=== PATIENT | female | born 1970 | race Caucasian/White ===

== ENCOUNTER → 2017-01-02 | Outpatient (CLI) | payer BC ==
--- NOTE | 2017-01-09 08:13 | MAMMOGRAPHY REPORT ---
UNILATERAL LEFT DIGITAL DIAGNOSTIC MAMMOGRAM TOMOSYNTHESIS WITH CAD AND TARGETED LEFT ULTRASOUND: 01/02/2017 CLINICAL HISTORY: 46-year-old woman presents for follow-up in the left breast for a nodular asymmetr y in the slightly superior posterior breast on the MLO view. This was thought to correlate with a p ossible complicated cyst on ultrasound. TECHNIQUE: Left breast tomosynthesis in addition to standard 2D mammography was performed. Current s tudy was also evaluated with a Computer Aided Detection (CAD) system. COMPARISON: Comparison is made to exams dated: 07/04/2016 stereotactic biopsy, 07/04/2016 mammogram, 06/13/2016 ultrasound, 06/13/2016 mammogram, 04/19/2016 mammogram, and 04/13/2015 ultrasound - [facility]. BREAST COMPOSITION: There are scattered areas of fibroglandular density in the left breast. FINDINGS: The 7 mm nodular asymmetry in the superior posterior left breast on the MLO view is less conspicuous on the current exam. There is no evidence of a suspicious mass, focal area of drupal architect ural distortion or new suspicious microcalcifications. There are a few stable benign-appearing roun d and punctate microcalcifications inferiorly in the left breast. Targeted ultrasound was performed in the lateral left breast to reevaluate the possible, located cys t in the 2:00 axis seen on prior ultrasound. Currently, a cyst is no longer identified in the 2:00 breast. In the 2:30 axis, 6 cm from the nipple, there is a lobulated predominantly anechoic circums cribed cyst measuring 4.0 x 3.8 x 3.0 mm. There is mild benign duct ectasia in the retroareolar lef t breast. No evidence of a suspicious solid mass. IMPRESSION: ACR BI-RADS CATEGORY 2: BENIGN, TARGETED ULTRASOUND ACR BI-RADS CATEGORY 2: BENIGN The 7 mm nodular asymmetry seen in the superior posterior left breast on the MLO view performed 03/28 is no longer seen, confirming benignity. A few small cysts are identified in the lateral lef t breast on ultrasound. There is no mammographic or targeted sonographic evidence of malignancy. Re turn to annual mammogram screening schedule is recommended. The patient has been verbally notified of the results. Approximately 10% of breast cancers are not detected with mammography. A negative mammographic repor t should not delay biopsy if a clinically suggestive mass is present. Maude Chamorro M.D. ay/:01/02/2017 08:57:31 Smoking Pipe Driller And Threader: Ngozi SILVESTRE(R)(M), [facility] letter sent: Normal 1/2 BI-RADS Code: ACR BI-RADS Category 2: Benign Ultrasound BI-RADS: ACR BI-RADS Category 2: Benign
== END | disposition home or self-care (01) ==
LOC: C.MAMM 08:29
PROVIDERS: ATTEND Family Medicine
DX: Z09 Encounter for follow-up examination after completed treatment for conditions other than malignant neoplasm (principal); R92.0 Mammographic microcalcification found on diagnostic imaging of breast; N64.89 Other specified disorders of breast

== ENCOUNTER → 2017-04-20 | Outpatient (CLI) | payer BC ==
--- NOTE | 2017-04-20 13:34 | MAMMOGRAPHY REPORT ---
BILATERAL DIGITAL SCREENING MAMMOGRAM TOMOSYNTHESIS WITH CAD: 04/20/2017 CLINICAL HISTORY: Routine screening. Patient has no complaints. TECHNIQUE: Breast tomosynthesis in addition to standard 2D mammography was performed. Current study was also evaluated with a Computer Aided Detection (CAD) system. COMPARISON: Comparison is made to exams dated: 01/02/2017 mammogram, 06/13/2016 mammogram, 04/19/2016 m ammogram, 03/25/2015 mammogram, 03/19/2014 mammogram, and 05/09/2012 mammogram - [facility]. BREAST COMPOSITION: There are scattered areas of fibroglandular density in both breasts. FINDINGS: No suspicious masses, calcifications, or areas of architectural distortion are noted in ei ther breast. There has been no significant interval change compared to prior exams. A biopsy marker clip is again noted in the right anterior breast. IMPRESSION: ACR BI-RADS CATEGORY 2: BENIGN There is no mammographic evidence of malignancy. A 1 year screening mammogram is recommended. The pa tient will receive written notification of the results. Approximately 10% of breast cancers are not detected with mammography. A negative mammographic report should not delay biopsy if a clinically suggestive mass is present. Yu Chinchilla M.D. /:04/20/2017 07:48:23 Lap Winder: Tianna BESS)(M), [facility] letter sent: Normal 1/2 BI-RADS Code: ACR BI-RADS Category 2: Benign
== END | disposition home or self-care (01) ==
LOC: C.MAMM 07:15
PROVIDERS: ATTEND Family Medicine
DX: Z12.31 Encounter for screening mammogram for malignant neoplasm of breast (principal)

== ENCOUNTER → 2017-08-21 | Outpatient (CLI) | payer BC | END | disposition home or self-care (01) | LOC: C.PAPS 08:09 | PROVIDERS: ATTEND Physician Assistant | DX: Z01.419 Encounter for gynecological examination (general) (routine) without abnormal findings (principal) ==